=== PATIENT | male | born 1950 | race Caucasian/White ===

== ENCOUNTER → 2018-09-10 08:58 | Outpatient (CLI) | payer OTHER, SELFPAY ==
[2018-09-10 09:40] LABS: Add Manual Diff / Slide Review NO; Basophils Absolute Auto 0 /uL (0-100); Basophils Percent Auto 0.8 % (0-2); Eosinophils Absolute Auto 200 /uL (0-450); Eosinophils Percent Auto 5.4 % (2-4); Hematocrit 44.4 % (41-53); Hemoglobin 15.7 g/dL (13.5-17.5); Lymphocytes Absolute Auto 1300 /uL (1100-4500); Mean Corpuscular HGB Conc 35.3 % (30-36); Mean Corpuscular Hemoglobin 32.2 PG (26-34); Mean Corpuscular Volume 91.2 fL (80-100); Monocytes Absolute Auto 400 /uL (0-900); Monocytes Percent Auto 9.8 % (3-14); Neutrophils Absolute Auto 2300 /uL (1500-7000); Platelet Count 227 X10^3/uL (150-400); Red Blood Cell Count 4.87 X10^6/uL (4.5-5.9); Red Cell Distribution Width 13.1 % (11.6-14.8); White Blood Cell Count 4.3 X10^3/uL (4.5-11.0)
[2018-09-10 10:06] LABS: Cholesterol 145 mg/dL (140-199); HDL Cholesterol 42 mg/dL (40-60); LDL Cholesterol Calculated 91 mg/dL (<100); Triglycerides 60 mg/dL (35-150)
[2018-09-10 10:32] LABS: Prostate Specific Antigen Scrn 2.08 ng/mL (0.1-4.0)
[2018-09-10 11:20] LABS: TSH w/ Reflex to FT4 1.52 uIU/mL (0.47-4.68)
== END ==
PROVIDERS: PCP Family Medicine; Visit Provider Family Medicine
DX: E78.5 Hyperlipidemia, unspecified (principal); K21.9 Gastro-esophageal reflux disease without esophagitis; Z12.5 Encounter for screening for malignant neoplasm of prostate; Z86.010 Personal history of colon polyps; Z87.19 Personal history of other diseases of the digestive system
CPT/HCPCS: 36415; 80061; 84443; 85025; G0103

== ENCOUNTER → 2020-08-11 14:29 | Outpatient (CLI) | payer OTHER, SELFPAY ==
--- NOTE | 2020-08-11 | DI.RAD.S_ITS ---
PROCEDURE: XR FOOT RT MIN 3V INDICATIONS: right heel pain TECHNIQUE: 3 views of the foot were acquired. COMPARISON: None. FINDINGS: Bones: No fractures or dislocations. No suspicious bony lesions. Bipartite medial sesamoid. Posterior and plantar calcaneal spurring. Soft tissues: No tibiotalar joint effusion. Achilles tendon appears normal. Vascular calcifications consistent with atherosclerosis. IMPRESSION: 1. No acute abnormalities. 2. Posterior and plantar calcaneal spurring. Dictated by: Pastora Grant M.D. on 08/11/2020 at 17:43 Approved by: Pastora Grant M.D. on 08/11/2020 at 17:44
== END ==
PROVIDERS: PCP Internal Medicine; Referring Provider Internal Medicine; Visit Provider Internal Medicine
DX: M79.671 Pain in right foot (principal); M77.31 Calcaneal spur, right foot
CPT/HCPCS: 73630

== ENCOUNTER → 2021-06-22 12:56 | Outpatient (CLI) | payer OTHER, SELFPAY ==
--- NOTE | 2021-06-22 | DI.CT.S_ITS ---
PROCEDURE: CT ABDOMEN PELVIS W CON INDICATIONS: abdominal pain/left lower quadrant pain TECHNIQUE: After the administration of oral and IV contrast, axial sections were acquired from the lung bases to the pubic symphysis. Coronal and sagittal reformats were performed. For radiation dose reduction, the following was used: automated exposure control, adjustment of mA and/or kV according to patient size. COMPARISON: None. FINDINGS: Image quality: Excellent. Lung bases: Unremarkable. Heart: No significant findings. ABDOMEN: Liver: Normal contour. 2.2 cm hypoattenuating lesion in the right hepatic lobe, which may reflect a hemangioma. Gallbladder: No gallbladder wall thickening or pericholecystic fluid. Small layering gallstones. Biliary ducts: Unremarkable. Pancreas: Unremarkable. Spleen: Unremarkable. Adrenal Glands: Unremarkable. Kidneys and Ureters: Symmetric enhancement without nephrolithiasis. Mild distal left hydroureter. Stomach and Bowel: No evidence of intestinal obstruction or inflammatory change. Descending/sigmoid diverticulosis. Peritoneum: No abnormal intraperitoneal fluid. No free air. Ventral Wall: No hernia. Abdominal Nodes: No retroperitoneal or mesenteric adenopathy by size criteria. Vessels: Aorta and inferior vena cava are normal in size. PELVIS: Pelvic Organs: Enlargement the prostate measures 6.5 cm in transverse dimension Bladder: Mass effect upon the urinary bladder. 1.6 cm left anterior diverticulum. Pelvic Nodes: No enlarged lymph nodes. Miscellaneous: No inguinal hernias are seen. Bones: Moderate to advanced disc height loss with vacuum phenomena at L5-S1. IMPRESSION: 1. Prostatomegaly. 2. Mass effect upon the urinary bladder with anterior diverticulum and mild distention of the distal left ureter. 3. 2.2 cm hypointense lesion in the right hepatic lobe, which may reflect a hemangioma. Consider ultrasound for further evaluation as clinically warranted. Dictated by: Joseph Wang M.D. on 06/22/2021 at 16:09 Approved by: Joseph Wang M.D. on 06/22/2021 at 16:16
== END ==
PROVIDERS: PCP Internal Medicine; Referring Provider Internal Medicine; Visit Provider Internal Medicine
DX: N32.3 Diverticulum of bladder (principal); N28.82 Megaloureter; N40.0 Benign prostatic hyperplasia without lower urinary tract symptoms; R10.32 Left lower quadrant pain; K76.9 Liver disease, unspecified
CPT/HCPCS: 74177

== ENCOUNTER → 2022-03-21 14:58 | Outpatient (ROUT) | payer OTHER, SELFPAY ==
[2022-03-21 15:44] LABS: Influenza A - CEPHEID Flu A NEGATIVE (NEGATIVE); Influenza B - CEPHEID Flu B NEGATIVE (NEGATIVE); Respiratory Syncytial Virus Negative (Negative)
[2022-03-21 15:59] LABS: COVID-19 CEPHEID 4-PLEX PCR Negative (Negative)
== END ==
PROVIDERS: PCP Internal Medicine; Visit Provider Internal Medicine
DX: R05.9 Cough, unspecified (principal); R06.02 Shortness of breath
CPT/HCPCS: 0241U

== ENCOUNTER → 2022-09-27 14:40 | Outpatient (CLI) | payer OTHER, SELFPAY ==
--- NOTE | 2022-09-27 | DI.US.S_ITS ---
PROCEDURE: US RENAL COMPLETE INDICATIONS: BLADDER MASS TECHNIQUE: Real-time scanning was performed of the kidneys and bladder, with image documentation. COMPARISON: None. FINDINGS: Kidneys: Kidneys are normal in size. Right kidney measures 10.8 cm long; left kidney measures 11.9 cm long. Right renal cortical thickness is 1.6 cm; left renal cortical thickness is 1.4 cm. Renal cortical echotexture is normal. No hydronephrosis or nephrolithiasis. No suspicious solid mass lesions. Bladder: Pre-void bladder volume is 296 mL. Post-void residual is 198 mL. Pre-void images demonstrate no intraluminal masses or stones. On pre-void images, no ureteral jets are noted with color Doppler interrogation. (Of note, ureteral jets may not be detectable in up to 25% of cases due to insufficient differences in specific gravity between ureteral and bladder urine). Miscellaneous: No free pelvic fluid. IMPRESSION: 1. Negative evaluation of the kidneys. 2. Moderate to large postvoid residual in the urinary bladder. 3. No evidence of urinary bladder mass by ultrasound Dictated by: Annamaria Cardenas M.D. on 09/27/2022 at 16:36 Transcribed by: ZANE on 09/27/2022 at 16:36 Approved by: Annamaria Cardenas M.D. on 09/27/2022 at 16:55
--- NOTE | 2022-09-27 | DI.US.S_ITS ---
PROCEDURE: US ABDOMEN LIMITED INDICATIONS: LIVER HEMANGIOMA TECHNIQUE: Real-time focused scanning was performed of the abdomen, with image documentation. COMPARISON: [facility], CT, CT ABDOMEN PELVIS W CON, 06/22/2021, 14:24. FINDINGS: Again noted is a spherical lesion involving the lateral segment of the left lobe of the liver. It has imaging characteristics consistent with a mildly atypical hemangioma. By ultrasound it measures 2.4 x 2.2 x 2.[address] it measured 2.2 cm. No other liver lesions. Diffuse increased echogenicity of the liver is consistent with diffuse hepatic steatosis. IMPRESSION: Stable size of left lobe liver lesion consistent with hemangioma. Diffuse hepatic steatosis. Dictated by: Darrin House M.D. on 09/27/2022 at 18:36 Approved by: Darrin House M.D. on 09/27/2022 at 18:38
== END ==
PROVIDERS: PCP Internal Medicine; Referring Provider Internal Medicine; Visit Provider Internal Medicine
DX: D18.00 Hemangioma unspecified site (principal); C67.9 Malignant neoplasm of bladder, unspecified
CPT/HCPCS: 76705; 76770

== ENCOUNTER → 2022-11-11 10:37 | Outpatient (CLI) | payer OTHER, SELFPAY ==
[2022-11-11 11:18] LABS: Hematocrit 41.1 % (41-53); Hemoglobin 14.7 g/dL (13.5-17.5); Mean Corpuscular HGB Conc 35.6 % (30-36); Mean Corpuscular Hemoglobin 33.3 PG (26-34); Mean Corpuscular Volume 93.5 fL (80-100); Platelet Count 127 X10^3/uL (150-400)
[2022-11-11 11:23] LABS: Add Manual Diff / Slide Review YES; White Blood Cell Count 1.8 X10^3/uL (4.5-11.0)
[2022-11-11 11:38] LABS: Neutrophils Absolute Manual 1188 /uL (3000-5900); RBC Morphology Normal Morphology; Total Cells Counted 50
[2022-11-11 11:50] LABS: Alanine Aminotransferase 48 IU/L (<50); Albumin 3.9 g/dL (3.5-5.0); Albumin Globulin Ratio 1.6 (1.0-2.8); Alkaline Phosphatase 50 U/L (38-126); Aspartate Aminotransferase 48 IU/L (17-59); Bilirubin Total 0.7 mg/dL (0.2-1.3); Blood Urea Nitrogen 11 mg/dL (9-20); Calcium 10.2 mg/dL (8.4-10.2); Carbon Dioxide 29 mmol/L (22-32); Chloride 99 mmol/L (98-107); Estimated Glomerular Filt Rate > 60 mL/min (>60); Globulin 2.5 g/dL (1.7-4.1); Glucose 112 mg/dL (80-110); HEMOLYSIS < 15 (0-50); Potassium 4.2 mmol/L (3.4-5.1); Sodium 133 mmol/L (137-145); Total Protein 6.4 g/dL (6.3-8.2)
== END ==
PROVIDERS: PCP Internal Medicine; Referring Provider Registered Nurse; Visit Provider Registered Nurse
DX: R31.9 Hematuria, unspecified (principal)
CPT/HCPCS: 36415; 80053; 85007; 85025

== ENCOUNTER → 2023-09-19 10:24 | Outpatient (CLI) | payer OTHER, SELFPAY ==
--- NOTE | 2023-09-19 10:27 | DI.RAD.S_ITS ---
PROCEDURE: XR LUMBAR SPINE 2-3V INDICATIONS: BACK PAIN TECHNIQUE: 3 views of the lumbar spine were acquired. COMPARISON: [facility], , -SPINE 2-3 VIEWS, 06/10/2014, 11:25. FINDINGS: Bones: 5 [id number] vertebrae are present. There is straightening of normal lumbar lordosis. Loss of disc height, degenerative endplate changes and bilateral facet arthrosis throughout lumbar spine is seen more notably at L4-5 and L5-S1 levels. No vertebral body compression fractures. No suspicious bony lesions. Soft tissues: Overlying bowel gas pattern is normal. No suspicious soft tissue calcifications. IMPRESSION: Degenerative disc disease throughout lumbar spine more notably in lower lumbar spine. No acute compression fracture or significant spondylolisthesis. Dictated by: Ridge Madera M.D. on 09/19/2023 at 17:49 Approved by: Ridge Madera M.D. on 09/19/2023 at 17:50
--- NOTE | 2023-09-19 10:27 | DI.RAD.S_ITS ---
PROCEDURE: XR SACRUM COCCYX MIN 2V INDICATIONS: JOINT PAIN TECHNIQUE: 3 views of the sacrum and coccyx acquired. COMPARISON: None. FINDINGS: Bones: Chronic appearing deformity involving mid to distal coccyx. No acute sacral or coccygeal fracture. 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 Degenerative disc disease in visualized lower lumbar spine is seen. No suspicious bony lesions. Soft tissues: Visualized bowel gas pattern is normal. No suspicious soft tissue densities. IMPRESSION: No acute sacral or coccygeal fracture. Old deformity involving lower coccyx. Degenerative disc disease in lower lumbar spine. Dictated by: Ridge Madera M.D. on 09/19/2023 at 17:50 Approved by: Ridge Madera M.D. on 09/19/2023 at 17:52
== END ==
PROVIDERS: PCP Internal Medicine; Referring Provider Internal Medicine; Visit Provider Internal Medicine
DX: M51.16 Intervertebral disc disorders with radiculopathy, lumbar region (principal); M53.3 Sacrococcygeal disorders, not elsewhere classified; G89.29 Other chronic pain
CPT/HCPCS: 72100; 72220

== ENCOUNTER → 2024-10-21 09:35 | Outpatient (CLI) | payer OTHER, SELFPAY ==
[2024-10-21 11:00] LABS: Prostate Specific Antigen 0.723 ng/mL (0.10-4.00)
== END ==
PROVIDERS: PCP Internal Medicine; Referring Provider Urology; Visit Provider Urology
DX: N40.1 Benign prostatic hyperplasia with lower urinary tract symptoms (principal); Z12.5 Encounter for screening for malignant neoplasm of prostate
CPT/HCPCS: 36415; 84153